=== PATIENT | female | born 1955 | race Caucasian/White ===

== ENCOUNTER 2016-02-01 08:53 | Inpatient (IN) | payer MEDICARE ==
[~2016-02-01] VITALS: Ht 162.6 cm; Wt 86.7 kg
[~2016-02-01 08:53] MED LIST: ALBU6.7H INH; ALLO100T PO; ALPR0.5T3 PO; BACL10TA PO; DOC-8.6T PO; HYDR-3366 PO; IMIT100T PO; LANTUS2P SQ; LEVO.05 PO; LOSA50TA PO; METO50TA11 PO; OXYC-395 PO
[2016-02-01] MEDS ORDERED: ERGO1CAP10 PO (13:55)
[2016-02-01] MEDS ORDERED: PANT40TA3 PO (13:55)
[2016-02-01] MEDS ORDERED: CIPR-9 PO (17:08)
[2016-02-19] MEDS ORDERED: VANCOMYCIN HCL 1000 MG ON-CALL/NS 250 ML IV SCH ×2 (06:00)
[2016-02-19] MEDS ORDERED: SODIUM CHLOR 0.9% 1000 ML INJ 1,000 ML IV SCH (06:00)
[2016-02-19] MEDS ORDERED: INSULIN HUMAN REGULAR 1,000 UNITS/10 ML VIAL SQ PRN (06:15)
[2016-02-19] MEDS ORDERED: METOPROLOL TARTRATE 25 MG TAB PO PRN (06:15)
[2016-02-19] MEDS ORDERED: LACTATED RINGER'S 1000 ML IV SCH (06:15)
[2016-02-19] MEDS ORDERED: SODIUM CHLORID 0.9% 500 ML IV SCH (06:15)
[2016-02-19 06:22] VITALS: BP 171/94; PULSE 84; RESP 18; TEMP 98; O2SAT 98
[2016-02-19] MEDS ORDERED: VANCOMYCIN HCL 1000 MG VIAL ONE (06:59)
[2016-02-19] MEDS ORDERED: BUPIVACAINE/EPINEPHRINE 0.5% 50 ML VIAL ONE (06:59)
[2016-02-19] MEDS ORDERED: THROMBIN (TOPICAL) 5,000 UNIT VIAL ONE (06:59)
[2016-02-19] MEDS ORDERED: GELFOAM SIZE 100 ONE (07:00)
[2016-02-19] MEDS ORDERED: DEXAMETHASONE SOD PHOS 4 MG/ML VIAL ONE (07:57)
[2016-02-19] MEDS ORDERED: MIDAZOLAM HCL 2 MG/2 ML VIAL ONE (07:57)
[2016-02-19] MEDS ORDERED: ACETAMINOPHEN 1000 MG/100 ML VIAL IV ONE (07:57)
[2016-02-19] MEDS ORDERED: FAMOTIDINE 20 MG/2 ML VIAL ONE (07:57)
[2016-02-19] MEDS ORDERED: VANCOMYCIN HCL 1000 MG VIAL OTHER ONE ×2 (09:03)
[2016-02-19] MEDS ORDERED: SUGAMMADEX SODIUM 200 MG/2 ML VIAL IV PUSH ONE ×2 (09:21)
[2016-02-19] MEDS ORDERED: NEOSTIGMINE 3 MG/3 ML SYR IV ONE (12:00)
[2016-02-19] MEDS ORDERED: NORMOSOL R INJ 1,000 ML IV ONE (12:00)
[2016-02-19] MEDS ORDERED: ONDANSETRON HCL 4 MG/2 ML VIAL IV PUSH ONE (12:00)
[2016-02-19] MEDS ORDERED: PHENYLEPH/NS 1000 MCG/10 ML SYR IV ONE (12:00)
[2016-02-19] MEDS ORDERED: ePHEDrine/NS 50 MG/5 ML SYR IV ONE (12:00)
[2016-02-19] MEDS ORDERED: PROPOFOL 200 MG/20 ML AMP IV ONE (12:00)
[2016-02-19] MEDS ORDERED: BISACODYL 10 MG SUPP PR PRN (12:15)
[2016-02-19] MEDS ORDERED: SODIUM CHLORIDE 0.9% FLUSH 5 ML FLUSH IVF PRN (12:15)
[2016-02-19] MEDS ORDERED: GLUCAGON 1 MG/ML VIAL OTHER PRN (12:15)
[2016-02-19] MEDS ORDERED: RESP: ALBUTEROL 2.5 MG/3 ML NEB (PRN) NEB (12:15)
[2016-02-19] MEDS ORDERED: PROMETHAZINE INJ 25 MG/ML VIAL IM PRN (12:15)
[2016-02-19] MEDS ORDERED: ALUMINUM/MAGNESIUM/SIMETH 30 ML CUP PO PRN (12:15)
[2016-02-19] MEDS ORDERED: CALCIUM GLUCONATE INJ 1 GM in SODIUM CHLORIDE 0.9% INJ 100 ML IV PRN (12:15)
[2016-02-19] MEDS ORDERED: MAGNESIUM SULFATE INJ 2 GM in SODIUM CHLORIDE 0.9% INJ 100 ML IV PRN (12:15)
[2016-02-19] MEDS ORDERED: POTASSIUM CHLOR 20 MEQ PREMIX 100 ML IV PRN (12:15)
[2016-02-19] MEDS ORDERED: ACETAMINOPHEN 325 MG TAB PO PRN (12:15)
[2016-02-19] MEDS ORDERED: MENTHOL LOZENGE SUCK-ON PRN (12:15)
[2016-02-19] MEDS ORDERED: ALBUTEROL SULFATE 90 MCG/ACT HFA 8 GM INHALER INH PRN (12:15)
[2016-02-19] MEDS ORDERED: DEXTROSE 50% IN WATER 50 ML VIAL(D50) IV PUSH PRN (12:15)
[2016-02-19] MEDS ORDERED: SUMAtriptan SUCCINATE 50 MG TAB PO PRN (12:15)
[2016-02-19] MEDS ORDERED: NALOXONE HCL 0.4 MG/ML AMP IV PRN (12:15)
[2016-02-19] MEDS ORDERED: diphenhydrAMINE HCL 50 MG/ML VIAL IV PRN (12:15)
[2016-02-19] MEDS ORDERED: ONDANSETRON HCL 4 MG/2 ML VIAL IV PRN (12:15)
[2016-02-19] MEDS ORDERED: ZOLPIDEM TARTRATE 5 MG TAB PO PRN (12:15)
[2016-02-19] MEDS ORDERED: *morphine SULFATE 8 MG/ML PERIprocedure ONLY ONE ×3 (12:21→12:35)
[2016-02-19] MEDS ORDERED: fentaNYL CITRATE 250 MCG/5 ML AMP ONE ×2 (12:42)
[2016-02-19] MEDS: NS + KCL 20 MEQ INJ 1,000 ML IV SCH (12:44)
[2016-02-19] MEDS ORDERED: DO NOT ADM ANY ANTICOAGULANT DRUGS XX PRN (12:45)
[2016-02-19] MEDS: MORPHINE SULFATE 30 MG/30 ML PCA IV SCH ×2 (12:45→22:31)
[2016-02-19 12:47] LABS: AUTOMATED NEUTROPHIL # 1.7 TH/MM3 (1.8-7.7); BASOPHIL % 0.3 % (0.0-2.0); EOSINOPHIL % 0.1 % (0.0-4.0); HEMATOCRIT 35.8 % (35.0-46.0); LYMPH % 22.3 % (9.0-44.0); LYMPHOCYTE # 0.5 TH/MM3 (1.0-4.8); MEAN CELL VOLUME 78.7 FL (80.0-100.0); MEAN CORPUSCULAR HEMOGLOBIN 25.9 PG (27.0-34.0); MEAN CORPUSCULAR HGB CONC 32.9 % (32.0-36.0); MONO % 2.4 % (0.0-8.0); NEUT % 74.9 % (16.0-70.0); PLATELET COUNT 116 TH/MM3 (150-450); RED BLOOD COUNT 4.56 MIL/MM3 (4.00-5.30); RED CELL DISTRIBUTION WIDTH 14.6 % (11.6-17.2); WHITE BLOOD COUNT 2.3 TH/MM3 (4.0-11.0)
[2016-02-19] MEDS ORDERED: *HYDROmorphone PF 1 MG VIAL PERIprocedural Use ONLY ONE ×2 (12:50→13:20)
[2016-02-19 13:06] LABS: BICARBONATE 25.9 MEQ/L (21.0-32.0); HEMO FLAGS AUTO DIFF; POTASSIUM 3.9 MEQ/L (3.5-5.1)
[2016-02-19] MEDS ORDERED: INSULIN HUMAN REGULAR 1,000 UNITS/10 ML VIAL ONE (13:08)
[2016-02-19] MEDS: INSULIN NovoLIN REGULAR SUPPLEMENTAL SCALE SQ SCH ×3 (13:09→21:00)
--- NOTE | 2016-02-19 13:14 | RADRPT ---
EXAM DATE/TIME: 02/19/2016 08:02 [facility] COMPARISON: No previous studies available for comparison. INDICATIONS: Post-op L2-L3 posterior lumbar fusion. MEDICAL HISTORY: None. SURGICAL HISTORY: None. ENCOUNTER: Initial ACUITY: 1 day PAIN SCORE: Non-responsive. LOCATION: Lumbar spine FINDINGS: Patient is status post unilateral transpedicular fixation L2-3 from a right side approach. Alignment is anatomic. CONCLUSION: Anatomic alignment. Miguel Navas MD FACR on February 19, 2016 at 13:10 Board Certified Radiologist. This report was verified electronically.
--- NOTE | 2016-02-19 13:15 | RADRPT ---
EXAM DATE/TIME: 02/19/2016 08:02 [facility] COMPARISON: No previous studies available for comparison. INDICATIONS: L2-L3 posterior lumbar fusion. Level localization. MEDICAL HISTORY: None. SURGICAL HISTORY: None. ENCOUNTER: Initial ACUITY: 1 day PAIN SCORE: Non-responsive. LOCATION: Lumbar spine. FINDINGS: Metallic probe is directed at L2 and L3. CONCLUSION: Metallic probe as described above. Miguel Navas MD FACR on February 19, 2016 at 13:11 Board Certified Radiologist. This report was verified electronically.
[2016-02-19] MEDS ORDERED: ERGOCALCIFEROL (VIT D2) 50,000 UNIT CAP PO SCH (14:00)
[2016-02-19] MEDS: BACLOFEN 10 MG TAB PO SCH ×2 (14:00→21:05)
--- NOTE | 2016-02-19 15:01 | PD.OP ---
Marzena Ibarra M.D. Operative Report Date of Surgery: Feb 19, 2016 Preoperative Diagnosis: L2-3 severe degenerative disc disease with associated grade 1 spondylolisthesis , disc protrusion and facet and ligamentum flavum hypertrophy with associated spinal and foraminal stenosis; L1-2 disc herniation with facet and ligamentum flavum hypertrophy and associated spinal stenosis; intractable low back pain with radiculopathy Postoperative Diagnosis: Same Procedure: L2-3 transforaminal interbody fusion; L1, L2 and L3 decompressive laminotomies with medial facetectomies and microdiscectomy; L2-3 pedicle screw fixation; L2- 3 interbody cage placement; microsurgical technique Anesthesia: Gen. endotracheal by Blade Mujica Surgeon: Tyler Joe M.D. Crystal Flat Grinder(s): Dominga Almanza Operation and Findings: Following initiation of general endotracheal anesthesia, the patient had a Al catheter placed along with sequential compression devices. A gram of vancomycin was administered intravenously and he was turned in a prone position on a Bart frame, on a Andre table, and all pressure points adequately padded. The lumbosacral region was then prepped with Chloraprep and sterilely draped with Ioban along the usual sterile draping. A midline skin incision extending from L1 to L3 levels was made after infiltrating the skin with 0.5% Marcaine with epinephrine solution extending down through the fascia. The muscle fibers were split using avascular fatty plane and detached from the underlying facets, transverse process and lateral portion of lamina on the right side and a self-retaining retractor used for exposure. Intraoperative fluoroscopy was also used for level of confirmation along with microscope magnification for further dissection. There was significant facet and ligamentum flavum hypertrophy noted at the L1-2 and L2-3 levels with the L-2-3 spondylolisthesis noted. Right L2-3 facet was resected with a drill bit along with the lamina and there was severe foraminal and lateral recess stenosis from hypertrophied ligamentum flavum and facet which were decompressed bilaterally through the usual lateral approach. There was significant disc height collapse along with disc protrusion also leading to the foraminal stenosis. Epidural hemostasis was achieved with bipolar cautery and Gelfoam with thrombin. Subsequently entered into the disc space at the L2-3 level with a #15 blade and na were used for discectomy. I then placed PEEK cage packed with local autograft bone and more local autograft bone was packed adjacent to the cage in interspace for added interbody fusion. With placement of the cage, I was able to distract the interspace and opened up the foramen further bilaterally. Subsequently in order to facilitate the fusion and provide stabilization, pedicle screw fixation was undertaken using Perkins spine screws with entry point at the right L2-3 levels at the junction of the transverse process and facet. Subsequently using AP and lateral fluoroscopy tap and screw placement. The screws were then connected with a chau and locked in place with caps. The construct appeared very secure at this point. Right L1 -2 hemilaminotomy with medial facetectomy was also undertaken and the underlying hypertrophied ligamentum flavum removed to decompress the spinal canal. The thecal sac was retracted the nerve root retractor and more ventrally herniated disc fragments were identified and removed with pituitary forceps. The area was then copiously irrigated with Vancomycin solution and powder. The retractors were removed and the bipolar cautery used for hemostasis. The muscle fascia was then approximated using 2-0 Vicryl interrupted stitches and then 3-0 Vicryl subcuticular stitches also placed in interrupted fashion. The final skin closure was completed with Mastisol and Steri-Strips. A sterile dressing was then applied. The patient then turned in supine position, extubated and taken to recovery room. There were no intraoperative complications. All sponge and needle counts were correct at the end of procedure. Estimated blood loss about 200 ml. Tyler Joe MD Feb 19, 2016 15:01
[2016-02-19 15:07] LABS: PLATELET ESTIMATE SMEAR LOW (NORMAL); PLATELET MORPHOLOGY NORMAL (NORMAL); SCAN/DIFF AUTO DIFF CONFIRMED
[2016-02-19 16:00] VITALS: BP 115/89; PULSE 111; RESP 18; TEMP 97.4; O2SAT 97
[2016-02-19] MEDS: ACETAMINOPHEN/HYDROcodone 325 MG/10 MG TAB PO PRN ×2 (16:35→21:04)
[2016-02-19 17:25] VITALS: O2SAT 98
[2016-02-19 20:00] VITALS: BP 111/57; PULSE 103; RESP 16; TEMP 97.9; O2SAT 96
[2016-02-19] MEDS: DOCUSATE SODIUM 50 MG/SENNA 8.6 MG TAB PO SCH (21:05)
[2016-02-19] MEDS: DOCUSATE SODIUM 100 MG CAP PO SCH (21:05)
[2016-02-19] MEDS: SODIUM CHLORIDE 0.9% FLUSH 5 ML FLUSH IVF SCH (21:06)
[2016-02-19] MEDS: PCA - TOTAL MG MORPHINE DELIVERED PER SHIFT SCH (21:06)
[2016-02-19 21:15] VITALS: O2SAT 98
[2016-02-20] VITALS (7 sets, daily range): BP systolic 118–191; BP diastolic 57–100; PULSE 89–116; RESP 16–19; TEMP 96.7–99.9; O2SAT 93–98
[2016-02-20] MEDS: ACETAMINOPHEN/HYDROcodone 325 MG/10 MG TAB PO PRN ×5 (01:08→17:56)
[2016-02-20] MEDS: NS + KCL 20 MEQ INJ 1,000 ML IV SCH ×3 (01:09→20:25)
[2016-02-20] MEDS: LEVOTHYROXINE SODIUM 50 MCG TAB PO SCH (05:54)
[2016-02-20] MEDS: BACLOFEN 10 MG TAB PO SCH ×3 (05:54→20:16)
[2016-02-20] MEDS: PCA - TOTAL MG MORPHINE DELIVERED PER SHIFT SCH ×3 (05:58→20:16)
[2016-02-20] MEDS: INSULIN NovoLIN REGULAR SUPPLEMENTAL SCALE SQ SCH ×4 (06:22→20:25)
[2016-02-20] MEDS: SODIUM CHLORIDE 0.9% FLUSH 5 ML FLUSH IVF SCH ×2 (09:00→20:16)
[2016-02-20] MEDS: DOCUSATE SODIUM 100 MG CAP PO SCH ×2 (09:04→20:16)
[2016-02-20] MEDS: ALPRAZolam 0.5 MG TAB PO PRN ×2 (09:04→17:56)
[2016-02-20] MEDS: ALLOPURINOL 100 MG TAB PO SCH (09:04)
[2016-02-20] MEDS: METOPROLOL SUCCINATE 50 MG EXTENDED RELEASE TAB PO SCH (09:04)
[2016-02-20] MEDS: LOSARTAN 50 MG TAB PO SCH (09:04)
[2016-02-20] MEDS: PANTOPRAZOLE SOD 40 MG DELAYED RELEASE TAB PO SCH (09:04)
[2016-02-20] MEDS: MORPHINE SULFATE 30 MG/30 ML PCA IV SCH ×2 (09:12→16:52)
[2016-02-20] MEDS: cloNIDine HCL 0.1 MG TAB PO PRN (20:16)
[2016-02-20] MEDS: DOCUSATE SODIUM 50 MG/SENNA 8.6 MG TAB PO SCH (20:16)
--- NOTE | 2016-02-20 23:30 | HHI.NSPN ---
History Chief Complaint: low back pain Interval History L2-3 interbody fusion on 02/19/16 System Review Comments Moderate low back pain. Exam Results Vital Signs Date Time Temp Pulse Resp B/P Pulse Ox O2 Delivery O2 Flow Rate FiO2 02/20/16 20:16 18 02/20/16 16:00 99.9 116 180/100 98 02/19/16 21:15 Nasal Cannula 2.00 02/19/16 17:25 21 Intake and Output 02/19/16 02/19/16 02/20/16 08:00 16:00 00:00 Intake Total 1700 ml 360 ml Output Total 1800 ml 1000 ml Balance -100 ml -640 ml Physical Examination Awake and alert speech clear and appropriate Respirations clear and regular Abdomen soft nontender No significant lower extremity edema Sensation intact to light touch lower extremities Strength 5/5 throughout the lower extremities Al catheter in place Medical Decision Making Impression and Plan Impression: 1. Stable neurologic function following L2-3 fusion with L1-2 laminectomy Plan: Patient states that she is not mobilizing well enough out of bed to remove the Al catheter and requested it be continued at present. She also states that her pain is still moderately severe at times and request continuation of the MACHINE STEAK TENDERIZER pump. Discharge plans were discussed with the patient. She lives alone and states that she will need to go to a group home facility upon discharge from the hospital in order to get stronger and have some initial rehabilitation prior to discharge home. Hosea Jimenez MD Feb 20, 2016 23:30
[2016-02-21] VITALS (7 sets, daily range): BP systolic 119–166; BP diastolic 65–97; PULSE 76–97; RESP 16–19; TEMP 97.2–100.2; O2SAT 94–98
[2016-02-21] MEDS: ACETAMINOPHEN/HYDROcodone 325 MG/10 MG TAB PO PRN ×4 (04:30→18:27)
[2016-02-21] MEDS: PCA - TOTAL MG MORPHINE DELIVERED PER SHIFT SCH ×3 (06:00→21:16)
[2016-02-21] MEDS: BACLOFEN 10 MG TAB PO SCH ×3 (06:00→21:16)
[2016-02-21] MEDS: LEVOTHYROXINE SODIUM 50 MCG TAB PO SCH (06:00)
[2016-02-21] MEDS: INSULIN NovoLIN REGULAR SUPPLEMENTAL SCALE SQ SCH ×4 (06:05→21:20)
[2016-02-21] MEDS: MORPHINE SULFATE 30 MG/30 ML PCA IV SCH ×2 (06:25→16:58)
[2016-02-21] MEDS: SODIUM CHLORIDE 0.9% FLUSH 5 ML FLUSH IVF SCH ×2 (09:00→21:00)
[2016-02-21] MEDS: ALLOPURINOL 100 MG TAB PO SCH (09:15)
[2016-02-21] MEDS: DOCUSATE SODIUM 100 MG CAP PO SCH ×2 (09:16→21:15)
[2016-02-21] MEDS: PANTOPRAZOLE SOD 40 MG DELAYED RELEASE TAB PO SCH (09:16)
[2016-02-21] MEDS: LOSARTAN 50 MG TAB PO SCH (09:16)
[2016-02-21] MEDS: METOPROLOL SUCCINATE 50 MG EXTENDED RELEASE TAB PO SCH (09:16)
[2016-02-21] MEDS: MAGNESIUM HYDROXIDE SUSP 30 ML CUP PO PRN (09:17)
[2016-02-21] MEDS: NS + KCL 20 MEQ INJ 1,000 ML IV SCH ×2 (15:00→21:21)
[2016-02-21] MEDS: ALPRAZolam 0.5 MG TAB PO PRN (18:27)
[2016-02-21] MEDS: cloNIDine HCL 0.1 MG TAB PO PRN (18:31)
[2016-02-21] MEDS: DOCUSATE SODIUM 50 MG/SENNA 8.6 MG TAB PO SCH (21:16)
--- NOTE | 2016-02-21 22:39 | HHI.NSPN ---
History Chief Complaint: low back pain Interval History L2-3 interbody fusion on 02/19/16 System Review Comments Complains of some gluteal and primarily posterior lateral thigh pain increased with ambulation today. No weakness or numbness in the lower extremities. 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 Exam Results Vital Signs Date Time Temp Pulse Resp B/P Pulse Ox O2 Delivery O2 Flow Rate FiO2 02/21/16 21:16 18 02/21/16 18:34 98 21 02/21/16 12:00 99.5 76 122/70 02/19/16 21:15 Nasal Cannula 2.00 Intake and Output 02/20/16 02/20/16 02/21/16 08:00 16:00 00:00 Intake Total 360 ml 960 ml 360 ml Output Total 1000 ml 1575 ml 1550 ml Balance -640 ml -615 ml -1190 ml Physical Examination Awake and alert speech clear and appropriate Respirations clear and regular Abdomen soft nontender No significant lower extremity edema Sitting up in chair with brace on Sensation intact to light touch lower extremities Strength 5/5 throughout the lower extremities Al catheter discontinued HIGH SCHOOL SOCIAL STUDIES TEACHER remains in place Medical Decision Making Impression and Plan Impression: 1. Stable neurologic function following L2-3 fusion with L1-2 laminectomy Plan: Al catheter discontinued today She also states that her pain is still moderately severe at times and request continuation of the HIGH SCHOOL SOCIAL STUDIES TEACHER pump. Complains of some pain radiating to the bilateral gluteal region and lateral thighs today with increased ambulation. Discharge plans were discussed with the patient. She lives alone and states that she will need to go to a penitentiary facility upon discharge from the hospital in order to get stronger and have some initial rehabilitation prior to discharge home. Hosea Jimenez MD Feb 21, 2016 22:39
[2016-02-22] VITALS (8 sets, daily range): BP systolic 127–193; BP diastolic 71–99; PULSE 70–106; RESP 17–18; TEMP 97.2–99.7; O2SAT 95–100
[2016-02-22] MEDS: ACETAMINOPHEN/HYDROcodone 325 MG/10 MG TAB PO PRN ×2 (02:15→22:04)
[2016-02-22] MEDS: ALPRAZolam 0.5 MG TAB PO PRN ×2 (04:28→16:20)
[2016-02-22] MEDS: MORPHINE SULFATE 30 MG/30 ML PCA IV SCH (04:42)
[2016-02-22] MEDS: INSULIN NovoLIN REGULAR SUPPLEMENTAL SCALE SQ SCH ×4 (05:04→20:58)
[2016-02-22] MEDS: BACLOFEN 10 MG TAB PO SCH ×3 (05:04→22:04)
[2016-02-22] MEDS: LEVOTHYROXINE SODIUM 50 MCG TAB PO SCH (05:04)
[2016-02-22] MEDS: PCA - TOTAL MG MORPHINE DELIVERED PER SHIFT SCH (05:07)
[2016-02-22] MEDS: MAGNESIUM HYDROXIDE SUSP 30 ML CUP PO PRN (08:44)
[2016-02-22] MEDS: LOSARTAN 50 MG TAB PO SCH (08:44)
[2016-02-22] MEDS: SODIUM CHLORIDE 0.9% FLUSH 5 ML FLUSH IVF SCH ×2 (08:44→20:58)
[2016-02-22] MEDS: ALLOPURINOL 100 MG TAB PO SCH (08:44)
[2016-02-22] MEDS: DOCUSATE SODIUM 100 MG CAP PO SCH ×2 (08:44→20:58)
[2016-02-22] MEDS: PANTOPRAZOLE SOD 40 MG DELAYED RELEASE TAB PO SCH (08:44)
[2016-02-22] MEDS: METOPROLOL SUCCINATE 50 MG EXTENDED RELEASE TAB PO SCH (08:44)
[2016-02-22] MEDS ORDERED: MORPHINE SULFATE 4 MG/ML INJ IV PUSH PRN (08:45)
[2016-02-22] MEDS ORDERED: ALPRAZolam 0.5 MG TAB PO PRN (17:00)
[2016-02-22] MEDS: PREGABALIN 25 MG CAP PO SCH ×2 (17:00→22:04)
[2016-02-22] MEDS ORDERED: REMOVE OLD PATCH T-DERMAL SCH (17:00)
[2016-02-22] MEDS ORDERED: fentaNYL 50 MCG/HR PATCH TD SCH (17:00)
--- NOTE | 2016-02-22 17:04 | HHI.NSPN ---
(Jay Suh) History Chief Complaint: low back pain and bilateral leg radicular pain. (Jay Suh) Interval History 02/22/16: Pt underwent a L1, L2, L3 decompressive laminectomy with medial facetectomy with microdiscectomy and L2/L3 TLIF with cage and pedicle screw fixation. 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 She is ambulating short distances. She states she has a high tolerance from being on pain medication for years. (Jay Suh) Review of Systems General: Negative for: fever, chills, insomnia Respiratory: Negative for: shortness of breath, cough, sputum Cardiovascular: Negative for: chest pain Gastrointestinal: Negative for: nausea, vomitting, diarrhea, constipation ( Jay Suh) Exam Results Vital Signs Date Time Temp Pulse Resp B/P Pulse Ox O2 Delivery O2 Flow Rate FiO2 02/22/16 12:32 18 02/22/16 12:00 98.7 92 127/82 100 02/22/16 09:34 Nasal Cannula 3.00 02/21/16 18:34 21 Intake and Output 02/21/16 02/21/16 02/22/16 08:00 16:00 00:00 Intake Total 534 ml 960 ml 360 ml Output Total 600 ml Balance -66 ml 960 ml 360 ml (Jay Suh) Physical Examination Heart: NSR no murmurs. Lungs: Respirations clear and regular Abdomen: soft nontender Positive bs Skin: No significant lower extremity edema Muscle: Sitting up in chair with brace on. Strength 5/5 throughout the lower extremities Neuro: Awake and alert speech clear and appropriate. Sensation intact to light touch lower extremities (Jay Suh) Lab, Micro, Other Results 02/21/16 02/21/16 02/22/16 15:00 23:00 07:00 Intake Total 960 ml 360 ml 413 ml Balance 960 ml 360 ml 413 ml Intake Oral 960 ml 360 ml 240 ml IV Total 173 ml # Voids 2 3 2 # Bowel Movements 0 0 0 (Jay Suh) Medical Decision Making Impression and Plan A: 60 y/o FM s/p L1, L2, L3 decompressive laminectomy with medial facetectomy and microdiscectomy with L2/L3 TLIF with cage and pedicle screw fixation. P: Continue to monitor Add Lyrica 50mg tid she states she was on Add Duragesic patch 50mg q 72 hours and Xanax 0.5mg q 8 hours prn anxiety Discussed with Dr. Joe who has personally examined pt and approves. (Jay Suh) Attending Statement The exam, history, and the medical decision-making described in the above note were completed with the assistance of the mid-level provider. I reviewed and agree with the findings presented. I attest that I had a [id number] encounter with the patient on the same day, and personally performed and documented my assessment and findings in the medical record. (Tyler Joe MD) Jay Suh Feb 22, 2016 17:04 Tyler Joe MD Feb 22, 2016 17:19
[2016-02-22] MEDS: cloNIDine HCL 0.1 MG TAB PO PRN (18:36)
[2016-02-22] MEDS: DOCUSATE SODIUM 50 MG/SENNA 8.6 MG TAB PO SCH (20:58)
[2016-02-23] VITALS: BP 174/84; PULSE 90; RESP 18; TEMP 98; O2SAT 96
[2016-02-23] MEDS: cloNIDine HCL 0.1 MG TAB PO PRN (00:18)
[2016-02-23] MEDS: ALPRAZolam 0.5 MG TAB PO PRN (00:18)
[2016-02-23 01:15] VITALS: BP 158/86; PULSE 88
[2016-02-23 04:00] VITALS: BP 126/60; PULSE 77; RESP 18; TEMP 96.8; O2SAT 96
[2016-02-23] MEDS: INSULIN NovoLIN REGULAR SUPPLEMENTAL SCALE SQ SCH ×3 (05:48→15:58)
[2016-02-23] MEDS: BACLOFEN 10 MG TAB PO SCH ×2 (05:48→12:54)
[2016-02-23] MEDS: PREGABALIN 25 MG CAP PO SCH ×2 (05:49→12:54)
[2016-02-23] MEDS: LEVOTHYROXINE SODIUM 50 MCG TAB PO SCH (05:49)
[2016-02-23 08:00] VITALS: BP 134/72; PULSE 90; RESP 18; TEMP 100; O2SAT 98
[2016-02-23] MEDS ORDERED: HYDR-3366 PO (09:02)
[2016-02-23] MEDS ORDERED: OXYC-395 PO (09:02)
[2016-02-23] MEDS ORDERED: FENT50T TD (09:02)
--- NOTE | 2016-02-23 09:27 | HHI.NSPN ---
History Chief Complaint: low back pain and bilateral leg radicular pain now controlled. Interval History 02/22/16: Pt underwent a L1, L2, L3 decompressive laminectomy with medial facetectomy with microdiscectomy and L2/L3 TLIF with cage and pedicle screw fixation. 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 She is ambulating short distances. She states she has a high tolerance from being on pain medication for years. 02/23/16: Pt feeling better this morning. She was restarted on Lyrica last night and she states her bilateral thigh nerve pain is resolved. Also started on a Duragesic patch and she states her pain is better controlled. She is ready for rehab. Review of Systems General: Negative for: fever, chills, insomnia Respiratory: Negative for: shortness of breath, cough, sputum Cardiovascular: Negative for: chest pain Gastrointestinal: Negative for: nausea, vomitting, diarrhea, constipation Exam Results Vital Signs Date Time Temp Pulse Resp B/P Pulse Ox O2 Delivery O2 Flow Rate FiO2 02/23/16 08:00 100.0 90 18 134/72 98 02/22/16 20:00 Nasal Cannula 3.00 02/21/16 18:34 21 Intake and Output 02/22/16 02/22/16 02/23/16 08:00 16:00 00:00 Intake Total 413 ml 600 ml 390 ml Balance 413 ml 600 ml 390 ml Physical Examination Heart: NSR no murmurs. Lungs: Respirations clear and regular Abdomen: soft nontender Positive bs Skin: No significant lower extremity edema Muscle: Sitting up in chair with brace on. Strength 5/5 throughout the lower extremities Neuro: Awake and alert speech clear and appropriate. Sensation intact to light touch lower extremities Lab, Micro, Other Results 02/22/16 02/22/16 02/23/16 15:00 23:00 07:00 Intake Total 600 ml 240 ml 390 ml Balance 600 ml 240 ml 390 ml Intake Oral 600 ml 240 ml 390 ml # Voids 4 2 2 # Bowel Movements 0 Medical Decision Making Impression and Plan A: 60 y/o FM s/p L1, L2, L3 decompressive laminectomy with medial facetectomy and microdiscectomy with L2/L3 TLIF with cage and pedicle screw fixation. P: Continue current pain medication regimine of Duragesic patch, Percocet and Lyrica. SNF placement. Jay Suh Feb 23, 2016 09:27
[2016-02-23] MEDS: MAGNESIUM HYDROXIDE SUSP 30 ML CUP PO PRN (09:33)
[2016-02-23] MEDS: LOSARTAN 50 MG TAB PO SCH (09:33)
[2016-02-23] MEDS: DOCUSATE SODIUM 100 MG CAP PO SCH (09:33)
[2016-02-23] MEDS: METOPROLOL SUCCINATE 50 MG EXTENDED RELEASE TAB PO SCH (09:33)
[2016-02-23] MEDS: ALLOPURINOL 100 MG TAB PO SCH (09:33)
[2016-02-23] MEDS: PANTOPRAZOLE SOD 40 MG DELAYED RELEASE TAB PO SCH (09:34)
[2016-02-23] MEDS: SODIUM CHLORIDE 0.9% FLUSH 5 ML FLUSH IVF SCH (09:34)
[2016-02-23] MEDS: ACETAMINOPHEN/HYDROcodone 325 MG/10 MG TAB PO PRN (10:47)
[2016-02-23 11:33] VITALS: BP 124/70; PULSE 83; RESP 18; TEMP 99.3; O2SAT 94
[2016-02-23 12:25] VITALS: O2SAT 92
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
== END 2016-02-23 17:29 | DRG 460 ==
LOC: HSDI 02-19 05:34 → N06B 02-19 15:31
PROVIDERS: ADMIT Neurological Surgery; ATTEND Neurological Surgery
PROC: 00NY0ZZ Release Lumbar Spinal Cord, Open Approach (ICD-10-PCS; 2016-02-19)
PROC: 0ST20ZZ Resection of Lumbar Vertebral Disc, Open Approach (ICD-10-PCS; 2016-02-19)
PROC: 0SG00AJ Fusion of Lumbar Vertebral Joint with Interbody Fusion Device, Posterior Approach, Anterior Column, Open Approach (ICD-10-PCS; principal; 2016-02-19 08:01)
DX: M51.16 Intervertebral disc disorders with radiculopathy, lumbar region (principal); M43.16 Spondylolisthesis, lumbar region; M48.06 Spinal stenosis, lumbar region; K76.0 Fatty (change of) liver, not elsewhere classified; E03.9 Hypothyroidism, unspecified; E11.9 Type 2 diabetes mellitus without complications; M19.90 Unspecified osteoarthritis, unspecified site; M06.9 Rheumatoid arthritis, unspecified; K21.9 Gastro-esophageal reflux disease without esophagitis; Z85.3 Personal history of malignant neoplasm of breast; E78.5 Hyperlipidemia, unspecified; J45.909 Unspecified asthma, uncomplicated; G47.30 Sleep apnea, unspecified
CPT/HCPCS: 72020; 72100; 76000; 80048; 82948; 85025; 86850; 86900; 86901; 86920; 94150; C1713; J0131; J0690; J1100; J1170; J1815; J2250; J2270; J2370; J2405; J2710; J3010; J3370; J3480; J7120